=== PATIENT | female | born 1990 | race African-American/Black ===

== ENCOUNTER 2017-08-19 18:56 | Inpatient (IN) | payer MEDICAID ==
--- NOTE | 2017-08-19 19:15 | ER Document Report ---
ED Medical Screen (RME) - General Chief Complaint: Abdominal Pain Stated Complaint: STOMACH PAIN Time Seen by Provider: 08/19/17 18:59 Notes: This 26-year-old female patient comes emergency room complaining of pelvic pain for the last 6 days. Sometimes the pain is in her low back. She reports she is having frequent bowel movements which are soft. She reports she is having intermittent fevers. She did have her tubes tied about 2 months ago in [facility]. I have greeted and performed a rapid initial assessment of this patient. A comprehensive ED assessment and evaluation of the patient, analysis of test results and completion of the medical decision making process will be conducted by additional ED providers. TRAVEL OUTSIDE OF THE [place] IN LAST 30 DAYS: No - Related Data Allergies/Adverse Reactions: No Known Allergies Allergy (Unverified 08/19/17 19:02) Past Medical History Renal/ Medical History: Denies: Hx Peritoneal Dialysis Physical Exam - Vital signs Vitals: Temp Pulse Resp BP Pulse Ox 99.6 F 117 H 20 133/64 H 98 08/19/17 19:02 08/19/17 19:02 08/19/17 19:02 08/19/17 19:02 08/19/17 19:02 Course - Vital Signs Vital signs: Temp Pulse Resp BP Pulse Ox 99.6 F 117 H 20 133/64 H 98 08/19/17 19:02 08/19/17 19:02 08/19/17 19:02 08/19/17 19:02 08/19/17 19:02
[2017-08-19 20:02] LABS: ABSOLUTE LYMPHOCYTES (AUTO) 0.8 10^3/uL (0.5-4.7); ABSOLUTE MONOCYTES (AUTO) 1.6 10^3/uL (0.1-1.4); ABSOLUTE NEUT (AUTO) 12.2 10^3/uL (1.7-8.2); BASOPHILS % (AUTO) 0.3 % (0-2); HEMATOCRIT 33.9 % (36.0-47.0); HEMOGLOBIN 11.6 g/dL (12.0-15.5); HGB HCT DIFFERENCE 0.9; LYMPHOCYTES % (AUTO) 5.7 % (13-45); MEAN CORPUSCULAR HGB CONC 34.3 g/dL (32.0-36.0); MEAN CORPUSCULAR VOLUME 85 fl (80-97); RED BLOOD COUNT 4.01 10^6/uL (3.72-5.28); RED CELL DISTRIBUTION WIDTH 18.7 % (11.5-14.0); WHITE BLOOD COUNT 14.7 10^3/uL (4.0-10.5)
[2017-08-19] MEDS ORDERED: NORMAL SALINE 1000 ML 1,000 ML IV ONE ×2 (20:04→21:59)
[2017-08-19] MEDS ORDERED: ONDANSETRON HCL INJ/PF 4 MG/2 ML SDV IV ONE (20:05)
[2017-08-19] MEDS ORDERED: KETOROLAC TROMETHAMINE INJ/PF 30 MG/1 ML SDV IV ONE (20:05)
--- NOTE | 2017-08-19 20:07 | ER Document Report ---
ED General - General Chief Complaint: Abdominal Pain Stated Complaint: STOMACH PAIN Time Seen by Provider: 08/19/17 18:59 Notes: Patient is a 26-year-old female without past medical history, recent tubal ligation after section 2 months ago, who presents with generalized abdominal pain and bilateral back pain that has been getting progressively worse over the last 6 months. She does describe a constant, generalized, aching pain to the affected areas. Nothing improves or worsens the pain. She notes that she has been nauseated and had no appetite or desire to drink fluids. She has not however had any vomiting. She has had multiple loose bowel movements. She denies a recent history of similar symptoms in the past. She denies any vaginal bleeding or discharge. She has not seen a primary care doctor regarding today's concerns. She states that she has had subjective fevers at home but has not recorded a fever. TRAVEL OUTSIDE OF THE [place] IN LAST 30 DAYS: No - Related Data Allergies/Adverse Reactions: No Known Allergies Allergy (Unverified 08/19/17 19:02) Home Medications: Current Home Medications No Home Medications 08/20/17 [History] Past Medical History - General Information source: Patient - Social History Smoking Status: Current Every Day Smoker Chew tobacco use (# tins/day): No Frequency of alcohol use: None Drug Abuse: None Lives with: Family Family History: Reviewed & Not Pertinent Renal/ Medical History: Denies: Hx Peritoneal Dialysis Past Surgical History: Reports: Hx Section, Hx Tubal Ligation Review of Systems - Review of Systems Notes: Constitutional: Negative for fever. HENT: Negative for sore throat. Eyes: Negative for visual changes. Cardiovascular: Negative for chest pain. Respiratory: Negative for shortness of breath. Gastrointestinal: Positive for abdominal pain and anorexia Genitourinary: Negative for dysuria. Musculoskeletal: Positive for back pain. Skin: Negative for rash. Neurological: Negative for headaches, weakness or numbness. 10 point ROS negative except as marked above and in HPI. Physical Exam - Vital signs Vitals: Temp Pulse Resp BP Pulse Ox 99.6 F 117 H 20 133/64 H 98 08/19/17 19:02 08/19/17 19:02 08/19/17 19:02 08/19/17 19:02 08/19/17 19:02 Interpretation: Tachycardic Notes: PHYSICAL EXAMINATION: GENERAL: Well-appearing, well-nourished and in no acute distress. HEAD: Atraumatic, normocephalic. EYES: Pupils equal round and reactive to light, extraocular movements intact, sclera anicteric, conjunctiva are normal. ENT: nares patent, oropharynx clear without exudates. Dry mucous membranes. NECK: Normal range of motion, supple without lymphadenopathy LUNGS: Breath sounds clear to auscultation bilaterally and equal. No wheezes rales or rhonchi. HEART: Regular tachycardia without murmurs ABDOMEN: Soft, nontender, normoactive bowel sounds. Mild bilateral CVA tenderness. No guarding, no rebound. No masses appreciated. EXTREMITIES: Normal range of motion, no pitting or edema. No cyanosis. NEUROLOGICAL: No focal neurological deficits. Moves all extremities spontaneously and on command. PSYCH: Normal mood, normal affect. SKIN: Warm, Dry, normal turgor, no rashes or lesions noted. Course - Re-evaluation Re-evalutation: 08/19/17 20:05 Patient presents with 6 days of generalized abdominal pain intermittently in her low back. Patient states that she has had 2 months of continuous intermittent pelvic pain since having a tubal ligation and performed but notes that over the past 6 days her abdominal pain has become more generalized with associated back pain. She has had anorexia with nausea but no vomiting. Does report frequent diarrheal bowel movements approximately every 1 hour without any hematochezia or melena. She has had subjective fevers but no recorded fevers. She has been able tolerate oral fluids at home. Abdominal examination is without any focal tenderness rebound or guarding. I have very low clinical suspicion for an acute appendicitis, biliary pathology, acute pancreatitis, bowel obstruction, mesenteric ischemia, tubo-ovarian abscess, based on examination and history. She denies vaginal bleeding or discharge. Differential does include possible acute colitis, pyelonephritis, much less likely intra-abdominal abscess given the remote nature of her surgery. Will proceed with labs, IV fluids, antiemetics, pain control and reassess. 08/19/17 21:59 Laboratories do show acute kidney injury with creatinine 2.74, urinalysis consistent with acute pyelonephritis. Cultures have been sent. IV ceftriaxone and IV fluids have been administered. Given patient's acute kidney failure in the setting of pyelonephritis she will require admission to the hospital. I discussed with the hospitalist Dr. Sheriff was accepted for admission and requested a renal ultrasound. This will be completed. - Vital Signs Vital signs: Temp Pulse Resp BP Pulse Ox 98.9 F 90 17 120/66 100 08/20/17 00:56 08/20/17 00:56 08/20/17 00:56 08/20/17 00:56 08/20/17 00:56 - Laboratory Result Diagrams: 08/19/17 19:43 08/19/17 19:43 Laboratory results interpreted by me: 08/19/17 08/19/17 08/19/17 19:43 19:43 19:43 WBC 14.7 H Hgb 11.6 L Hct 33.9 L RDW 18.7 H Seg Neutrophils % 83.0 H Lymphocytes % 5.7 L Absolute Neutrophils 12.2 H Absolute Monocytes 1.6 H Sodium 136.8 L Potassium 3.1 L Carbon Dioxide 21 L BUN 24 H Creatinine 2.73 H Est GFR ( Amer) 25 L Est GFR (Non-Af Amer) 21 L Glucose 115 H AST 123 H ALT 91 H Urine Protein >=500 H Urine Blood MODERATE H Ur Leukocyte Esterase MODERATE H Urine HCG, Qual POSITIVE H - Diagnostic Test Radiology reviewed: Image reviewed, Reports reviewed Radiology results interpreted by me: 08/20/17 03:13 Chest x-ray: No acute infiltrate or pneumothorax Discharge - Discharge Clinical Impression: Pyelonephritis Sepsis Qualifiers: Sepsis type: sepsis due to unspecified organism Qualified Code(s): A41.9 - Sepsis, unspecified organism Renal failure Qualifiers: Renal failure chronicity: acute Acute renal failure type: unspecified Qualified Code(s): N17.9 - Acute kidney failure, unspecified Condition: Fair Disposition: ADMITTED INPATIENT Admitting Provider: Natalee Sheriff Unit Admitted: Medical Floor
[2017-08-19 20:08] LABS: AMORPHOUS SEDIMENT,URINE TRACE /HPF; APPEARANCE,URINE TURBID; BILIRUBIN,URINE NEGATIVE (NEGATIVE); GLUCOSE, URINE NEGATIVE (NEGATIVE); KETONES,URINE NEGATIVE (NEGATIVE); LEUKOCYTE ESTERASE,URINE MODERATE (NEGATIVE); NITRITE,URINE NEGATIVE (NEGATIVE); PROTEIN,URINE >=500 mg/dL (NEGATIVE); URINE SPECIFIC GRAVITY 1.014; UROBILINOGEN,URINE NEGATIVE mg/dL (<2.0)
[2017-08-19 20:16] LABS: ALANINE AMINOTRANSFERASE 91 U/L (9-52); ALBUMIN 3.5 g/dL (3.5-5.0); ALKALINE PHOSPHATASE 89 U/L (38-126); ANION GAP 16 (5-19); ASPARTATE AMINO TRANSFERASE 123 U/L (14-36); BILIRUBIN,DIRECT 0.3 mg/dL (0.0-0.4); BILIRUBIN,TOTAL 0.5 mg/dL (0.2-1.3); BLOOD UREA NITROGEN 24 mg/dL (7-20); CALCIUM 8.7 mg/dL (8.4-10.2); CARBON DIOXIDE 21 mmol/L (22-30); CHLORIDE 100 mmol/L (98-107); CREATININE RESULT 2.73 mg/dL (0.52-1.25); GLUCOSE 115 mg/dL (75-110); SODIUM 136.8 mmol/L (137-145); TOTAL PROTEIN 6.7 g/dL (6.3-8.2)
[2017-08-19] MEDS ORDERED: CEFTRIAXONE 1 GM/D5W RTU 1 GM/50 ML RTUPB IV ONE (20:30)
[2017-08-19 20:33] LABS: POTASSIUM 3.1 mmol/L (3.6-5.0)
[2017-08-19 20:50] LABS: ADD ON TESTING BLD IN LAB ACKNOWLEDGE
--- NOTE | 2017-08-19 21:03 | RADIOLOGY REPORT (SQ) ---
EXAM DESCRIPTION: CHEST SINGLE VIEW COMPLETED DATE/TIME: 08/19/2017 8:52 pm REASON FOR STUDY: sob COMPARISON: None. EXAM PARAMETERS: NUMBER OF VIEWS: One view. TECHNIQUE: Single frontal radiographic view of the chest acquired. RADIATION DOSE: NA LIMITATIONS: None. FINDINGS: LUNGS AND PLEURA: No opacities, masses or pneumothorax. No pleural effusion. MEDIASTINUM AND HILAR STRUCTURES: No masses. Contour normal. HEART AND VASCULAR STRUCTURES: Heart normal in size. Normal vasculature. BONES: No acute findings. HARDWARE: None in the chest. OTHER: No other significant finding. IMPRESSION: NO ACUTE RADIOGRAPHIC FINDING IN THE CHEST. TECHNICAL DOCUMENTATION: JOB ID: [id number]
[2017-08-19 21:33] LABS: CHLAM PCR NOT DETECTED (NOT DETECT)
[2017-08-19] MEDS ORDERED: PROMETHAZINE HCL 25 MG SUPP.RECT PR PRN (23:01)
[2017-08-19] MEDS ORDERED: POTASSIUM CHLORIDE 10 MEQ TABLET.SA PO ONE (23:05)
[2017-08-19] MEDS ORDERED: NORMAL SALINE 1000 ML 2,000 ML IV ONE (23:13)
--- NOTE | 2017-08-19 23:15 | PDOC H&P ---
History of Present Illness Admission Date/PCP: 08/19/17 22:06 History of Present Illness: NYA CERRATO is a 26 year old female with no PMH who presents to [facility] with abdominal pain and diarrhea. Patient reports she developed sudden onset of watery diarrhea about 5 days ago. Patient reports she has been having more than 20 stools/day. Patient reports no associated hematochezia or melena and diarrhea is not bloody. Patient denies any raw or undercooked meat, raw or undercooked shellfish, sick contacts, or travel outside the country. She reports no recent antibiotic usage, the patient did have a approximately 2 months ago. Patient denies any urinary frequency, urgency, or dysuria. Patient reports in fact very recently she has been urinating very little. Patient reports a subjective fever and chills but did not take her temperature. She is referred to the hospitalist service for sepsis with acute renal failure secondary to urinary tract infection. Past Medical History Medical History: None Past Surgical History Past Surgical History: Reports: Section, Tubal Ligation Social History Smoking Status: Current Every Day Smoker Frequency of Alcohol Use: None Hx Recreational Drug Use: No Hx Prescription Drug Abuse: No - Advance Directive Resuscitation Status: Full Code Surrogate healthcare decision maker:: Gee Dutta, grandmother Family History Family History: DM, Other - Asthma Parental Family History Reviewed: Yes Children Family History Reviewed: Yes Sibling(s) Family History Reviewed.: Yes Medication/Allergy Allergies/Adverse Reactions: No Known Allergies Allergy (Unverified 08/19/17 19:02) Review of Systems Constitutional: PRESENT: anorexia, chills, fatigue, fever(s), weakness. ABSENT : headache(s), weight gain, weight loss Eyes: ABSENT: visual disturbances Ears: ABSENT: hearing changes Cardiovascular: ABSENT: chest pain, dyspnea on exertion, edema, orthropnea, palpitations Respiratory: ABSENT: cough, hemoptysis Gastrointestinal: PRESENT: abdominal pain, diarrhea, nausea. ABSENT: constipation, heartburn, hematemesis, hematochezia, melena, vomiting Genitourinary: ABSENT: dysuria, hematuria Musculoskeletal: ABSENT: joint swelling Integumentary: ABSENT: rash, wounds Neurological: ABSENT: abnormal gait, abnormal speech, confusion, dizziness, focal weakness, syncope Psychiatric: ABSENT: anxiety, depression, homidical ideation, suicidal ideation Endocrine: ABSENT: cold intolerance, heat intolerance, polydipsia, polyuria Hematologic/Lymphatic: ABSENT: easy bleeding, easy bruising Physical Exam Vital Signs: Temp Pulse Resp BP Pulse Ox 99.6 F 117 H 20 133/64 H 98 08/19/17 19:02 08/19/17 19:02 08/19/17 19:02 08/19/17 19:02 08/19/17 19:02 General appearance: PRESENT: no acute distress, well-developed, well-nourished Head exam: PRESENT: atraumatic, normocephalic Eye exam: PRESENT: conjunctiva pink, EOMI, PERRLA. ABSENT: scleral icterus Ear exam: PRESENT: normal external ear exam Mouth exam: PRESENT: dry mucosa, tongue midline Neck exam: ABSENT: carotid bruit, JVD, lymphadenopathy, thyromegaly Respiratory exam: PRESENT: clear to auscultation kings. ABSENT: rales, rhonchi, wheezes Cardiovascular exam: PRESENT: RRR. ABSENT: diastolic murmur, rubs, systolic murmur Pulses: PRESENT: normal dorsalis pedis pul Vascular exam: PRESENT: normal capillary refill GI/Abdominal exam: PRESENT: normal bowel sounds, soft. ABSENT: distended, guarding, mass, organolmegaly, rebound, tenderness Rectal exam: PRESENT: deferred Extremities exam: PRESENT: full ROM. ABSENT: calf tenderness, clubbing, pedal edema Neurological exam: PRESENT: alert, awake, oriented to person, oriented to place , oriented to time, oriented to situation, CN II-XII grossly intact. ABSENT: motor sensory deficit Psychiatric exam: PRESENT: appropriate affect, normal mood. ABSENT: homicidal ideation, suicidal ideation Skin exam: PRESENT: dry, intact, warm. ABSENT: cyanosis, rash Results Laboratory Results: 08/19/17 08/19/17 08/19/17 19:43 19:43 19:43 WBC 14.7 H Hgb 11.6 L Hct 33.9 L Plt Count 208 Sodium 136.8 L Potassium 3.1 L Chloride 100 Carbon Dioxide 21 L Anion Gap 16 BUN 24 H Creatinine 2.73 H Glucose 115 H Calcium 8.7 Total Bilirubin 0.5 Direct Bilirubin 0.3 AST 123 H ALT 91 H Alkaline Phosphatase 89 Total Protein 6.7 Albumin 3.5 Beta HCG, Quant Total Beta HCG Ur Specific [place] Urine Blood Ur Leukocyte Esterase Urine Bacteria (Auto) Urine HCG, Qual Chlamydia DNA (PCR) NOT DETECTED N.gonorrhoeae DNA (PCR) NOT DETECTED 08/19/17 08/19/17 19:43 19:43 WBC Hgb Hct Plt Count Sodium Potassium Chloride Carbon Dioxide Anion Gap BUN Creatinine Glucose Calcium Total Bilirubin Direct Bilirubin AST ALT Alkaline Phosphatase Total Protein Albumin Beta HCG, Quant < 2.39 Total Beta HCG NEGATIVE Ur Specific [place] 1.014 Urine Blood MODERATE H Ur Leukocyte Esterase MODERATE H Urine Bacteria (Auto) 3+ Urine HCG, Qual POSITIVE H Chlamydia DNA (PCR) N.gonorrhoeae DNA (PCR) Impressions: Chest X-Ray 08/19/17 20:05 IMPRESSION: NO ACUTE RADIOGRAPHIC FINDING IN THE CHEST. Assessment & Plan - Diagnosis (1) Sepsis Qualifiers: Sepsis type: sepsis due to unspecified organism Qualified Code(s): A41.9 - Sepsis, unspecified organism Is this a current diagnosis for this admission?: Yes Plan: Patient needs technical sepsis criteria. Selected Entries 08/19/17 19:02 Pulse Rate 117 H 08/19/17 08/19/17 19:43 19:43 WBC 14.7 H BUN 24 H Creatinine 2.73 H We will bolus patient and initiate antibiotics and obtain cultures. Maintain map greater than 65 (2) Renal failure Qualifiers: Renal failure chronicity: acute Acute renal failure type: unspecified Qualified Code(s): N17.9 - Acute kidney failure, unspecified Is this a current diagnosis for this admission?: Yes Plan: Likely secondary to dehydration. Will obtain a renal ultrasound to rule out hydronephrosis. And follow creatinine. (3) UTI (urinary tract infection) Qualifiers: Urinary tract infection type: acute cystitis Hematuria presence: without hematuria Qualified Code(s): N30.00 - Acute cystitis without hematuria Is this a current diagnosis for this admission?: Yes Plan: Place patient on Rocephin. Pending culture. (4) Diarrhea Qualifiers: Diarrhea type: presumed infectious Qualified Code(s): A09 - Infectious gastroenteritis and colitis, unspecified Is this a current diagnosis for this admission?: Yes Plan: Patient's diarrhea is presumed infectious. She had associated fever and significant volume. We will check a stool culture, C. difficile, fecal leukocytes, and occult blood. Place patient on Flagyl pending results of these. (5) Hypokalemia Is this a current diagnosis for this admission?: Yes Plan: Replete and recheck. Check magnesium (6) Hyponatremia Is this a current diagnosis for this admission?: Yes Plan: Secondary to intravascular volume depletion will replete and recheck (7) Obesity (BMI 30.0-34.9) Is this a current diagnosis for this admission?: Yes - Time Time Spent: 30 to 50 Minutes Medications reviewed and adjusted accordingly: Yes Anticipated discharge: Home Within: Other - Upon improvement of symptomatology and creatinine as well as identification of organism - Inpatient Certification Based on my medical assessment, after consideration of the patient's comorbidities, presenting symptoms, or acuity I expect that the services needed warrant INPATIENT care.: Yes I certify that my determination is in accordance with my understanding of Medicare's requirements for reasonable and necessary INPATIENT services [42 CFR 412.3e].: Yes Medical Necessity: Need For IV Fluids, Need for IV Antibiotics Post Hospital Care: D/C Bail Bonding Agent Documentation
[2017-08-20] MEDS: METRONIDAZOLE 500 MG/NS RTU 100 ML IV SCH ×3 (00:22→11:27)
--- NOTE | 2017-08-20 00:26 | RADIOLOGY REPORT (SQ) ---
EXAM DESCRIPTION: U/S RETROPERITON (RENAL/AORTA) COMPLETED DATE/TIME: 08/20/2017 12:05 am REASON FOR STUDY: eval obstruction, renal failure COMPARISON: None. TECHNIQUE: Grayscale images acquired of the kidneys and bladder and recorded on PACS. Additional charlie ected color Doppler images recorded. LIMITATIONS: None. FINDINGS: RIGHT KIDNEY: Measures 13.7 x 5.6 x 7.3 cm. Normal echogenicity. No hydronephrosis. No maureen cifications. LEFT KIDNEY: Measures 13.1 x 6.0 x 6.4 cm. Normal echogenicity. No hydronephrosis. No calcifications . BLADDER: Not visualized. IMPRESSION: No hydronephrosis. TECHNICAL DOCUMENTATION: JOB ID: [id number] [employer]- All Rights Reserved
[2017-08-20] MEDS: ACETAMINOPHEN 325 MG TABLET PO PRN ×3 (04:51→20:42)
[2017-08-20] MEDS: ONDANSETRON HCL INJ/PF 4 MG/2 ML SDV IV PRN (04:52)
[2017-08-20] MEDS: HEPARIN SOD (PORCINE) 5,000 UNIT/ML 1 ML SYRINGE SUBCUT SCH ×3 (06:00→21:49)
[2017-08-20 06:41] LABS: ANION GAP 14 (5-19); BLOOD UREA NITROGEN 28 mg/dL (7-20); CALCIUM 7.9 mg/dL (8.4-10.2); CARBON DIOXIDE 18 mmol/L (22-30); CHLORIDE 107 mmol/L (98-107); CREATININE RESULT 3.04 mg/dL (0.52-1.25); GLUCOSE 101 mg/dL (75-110); MAGNESIUM 1.6 mg/dL (1.6-2.3); POTASSIUM 3.5 mmol/L (3.6-5.0); SODIUM 138.9 mmol/L (137-145)
[2017-08-20 09:14] LABS: ABSOLUTE BASOPHILS # (AUTO) 0.1 10^3/uL (0.0-0.2); ABSOLUTE LYMPHOCYTES (AUTO) 0.8 10^3/uL (0.5-4.7); ABSOLUTE MONOCYTES (AUTO) 1.2 10^3/uL (0.1-1.4); ABSOLUTE NEUT (AUTO) 10.2 10^3/uL (1.7-8.2); BASOPHILS % (AUTO) 0.4 % (0-2); EOSINOPHILS % (AUTO) 0.2 % (0-6); HEMATOCRIT 29.1 % (36.0-47.0); HEMOGLOBIN 9.6 g/dL (12.0-15.5); HGB HCT DIFFERENCE -0.3; LYMPHOCYTES % (AUTO) 6.9 % (13-45); MEAN CORPUSCULAR HEMOGLOBIN 28.5 pg (27.0-33.4); MEAN CORPUSCULAR VOLUME 87 fl (80-97); MONOCYTES % (AUTO) 9.4 % (3-13); RED BLOOD COUNT 3.37 10^6/uL (3.72-5.28); RED CELL DISTRIBUTION WIDTH 18.2 % (11.5-14.0); SEGMENTED NEUTROPHILS % (AUTO) 83.1 % (42-78); WHITE BLOOD COUNT 12.3 10^3/uL (4.0-10.5)
[2017-08-20] MEDS ORDERED: CEFTRIAXONE 1 GM/D5W RTU 1 GM/50 ML RTUPB IV SCH (10:00)
[2017-08-20] MEDS: NORMAL SALINE 1000 ML 1,000 ML IV PRN (13:41)
--- NOTE | 2017-08-20 14:53 | PDOC PROGRESS REPORT ---
Subjective Progress Note for:: 08/20/17 Subjective:: Patient still having diarrhea but less. No dysuria urgency or frequency. No melena hematochezia hematemesis. No hematuria. Abdominal pain is better. No chills fever nor shortness of breath. Physical Exam Vital Signs: Temp Pulse Resp BP Pulse Ox 98.3 F 85 16 108/55 L 99 08/20/17 12:10 08/20/17 12:10 08/20/17 12:10 08/20/17 12:10 08/20/17 12:10 Intake & Output 08/19/17 08/20/17 08/21/17 06:59 06:59 06:59 Intake Total 600 Balance 600 Weight 96.1 kg General appearance: PRESENT: no acute distress, morbidly obese Head exam: PRESENT: normocephalic Eye exam: PRESENT: EOMI Mouth exam: PRESENT: moist, neck supple Neck exam: ABSENT: JVD Respiratory exam: PRESENT: clear to auscultation kings. ABSENT: rhonchi, wheezes Cardiovascular exam: PRESENT: RRR. ABSENT: gallop GI/Abdominal exam: PRESENT: hyperactive bowel sounds, soft. ABSENT: distended - Obese, tenderness Extremities exam: ABSENT: pedal edema Neurological exam: PRESENT: alert, awake, oriented to situation Skin exam: PRESENT: dry, warm. ABSENT: cyanosis Results Laboratory Results: 08/20/17 08:12 08/20/17 05:31 08/19/17 08/19/17 08/20/17 23:05 23:05 05:31 WBC Cancelled RBC Cancelled Hgb Cancelled Hct Cancelled MCV Cancelled MCH Cancelled MCHC Cancelled RDW Cancelled Plt Count Cancelled Seg Neutrophils % Cancelled Lymphocytes % Cancelled Monocytes % Cancelled Eosinophils % Cancelled Basophils % Cancelled Absolute Neutrophils Cancelled Absolute Lymphocytes Cancelled Absolute Monocytes Cancelled Absolute Eosinophils Cancelled Absolute Basophils Cancelled Sodium Potassium Chloride Carbon Dioxide Anion Gap BUN Creatinine Est GFR ( Amer) Est GFR (Non-Af Amer) Glucose Calcium Magnesium Stool Occult Blood NEGATIVE Stool for White Cells NO WBCs SEEN 08/20/17 08/20/17 05:31 08:12 WBC 12.3 H RBC 3.37 L Hgb 9.6 L Hct 29.1 L MCV 87 MCH 28.5 MCHC 33.0 RDW 18.2 H Plt Count 169 Seg Neutrophils % 83.1 H Lymphocytes % 6.9 L Monocytes % 9.4 Eosinophils % 0.2 Basophils % 0.4 Absolute Neutrophils 10.2 H Absolute Lymphocytes 0.8 Absolute Monocytes 1.2 Absolute Eosinophils 0.0 Absolute Basophils 0.1 Sodium 138.9 Potassium 3.5 L Chloride 107 Carbon Dioxide 18 L Anion Gap 14 BUN 28 H Creatinine 3.04 H Est GFR ( Amer) 22 L Est GFR (Non-Af Amer) 18 L Glucose 101 Calcium 7.9 L Magnesium 1.6 Stool Occult Blood Stool for White Cells Impressions: Chest X-Ray 08/19/17 20:05 IMPRESSION: NO ACUTE RADIOGRAPHIC FINDING IN THE CHEST. Renal Ultrasound 08/19/17 21:58 IMPRESSION: No hydronephrosis. Assessment & Plan - Diagnosis (1) Sepsis Qualifiers: Sepsis type: sepsis due to unspecified organism Qualified Code(s): A41.9 - Sepsis, unspecified organism Is this a current diagnosis for this admission?: Yes (2) UTI (urinary tract infection) Qualifiers: Urinary tract infection type: acute cystitis Hematuria presence: without hematuria Qualified Code(s): N30.00 - Acute cystitis without hematuria Is this a current diagnosis for this admission?: Yes (3) Renal failure Qualifiers: Renal failure chronicity: acute Acute renal failure type: unspecified Qualified Code(s): N17.9 - Acute kidney failure, unspecified Is this a current diagnosis for this admission?: Yes (4) Diarrhea Qualifiers: Diarrhea type: presumed infectious Qualified Code(s): A09 - Infectious gastroenteritis and colitis, unspecified Is this a current diagnosis for this admission?: Yes (5) Obesity (BMI 30.0-34.9) Is this a current diagnosis for this admission?: Yes - Time Time Spent with patient: 25-34 minutes - Plan Summary Plan Summary: We will change antibiotic to Primaxin pending identity of the gram-negative organisms. De-escalate once culture and sensitivity available. Repeat blood cultures in the morning. In the meantime replace electrolytes and monitor. Continue supportive care.
[2017-08-20] MEDS ORDERED: IMIPENEM/CILASTATIN SODIUM INJ 500 MG VIAL IV SCH (15:00)
[2017-08-20] MEDS ORDERED: POTASSIUM CHLORIDE 10 MEQ TABLET.SA PO ONE (16:00)
[2017-08-20] MEDS: IMIPENEM/CILASTATIN SODIUM 500 MG in NORMAL SALINE 100 ML IV SCH (17:07)
[2017-08-20] MEDS ORDERED: NORMAL SALINE 1000 ML 2,000 ML IV ONE (21:30)
[2017-08-20] MEDS ORDERED: KETOROLAC TROMETHAMINE INJ/PF 30 MG/1 ML SDV ONE (21:32)
[2017-08-20] MEDS ORDERED: KETOROLAC TROMETHAMINE INJ/PF 30 MG/1 ML SDV IV ONE (22:00)
[2017-08-21] MEDS: IMIPENEM/CILASTATIN SODIUM 500 MG in NORMAL SALINE 100 ML IV SCH ×5 (00:26→23:48)
[2017-08-21] MEDS ORDERED: KETOROLAC TROMETHAMINE INJ/PF 30 MG/1 ML SDV IV PRN (04:02)
[2017-08-21] MEDS: HEPARIN SOD (PORCINE) 5,000 UNIT/ML 1 ML SYRINGE SUBCUT SCH ×3 (05:26→21:50)
[2017-08-21 06:49] LABS: ANION GAP 10 (5-19); BLOOD UREA NITROGEN 24 mg/dL (7-20); CALCIUM 7.6 mg/dL (8.4-10.2); CARBON DIOXIDE 18 mmol/L (22-30); CHLORIDE 114 mmol/L (98-107); CREATININE RESULT 2.62 mg/dL (0.52-1.25); GLUCOSE 93 mg/dL (75-110); POTASSIUM 4.2 mmol/L (3.6-5.0); SODIUM 142.2 mmol/L (137-145)
[2017-08-21] MEDS: ONDANSETRON HCL INJ/PF 4 MG/2 ML SDV IV PRN ×2 (07:39→18:13)
[2017-08-21] MEDS: NORMAL SALINE 1000 ML 1,000 ML IV PRN (10:59)
--- NOTE | 2017-08-21 14:13 | PDOC PROGRESS REPORT ---
Subjective Progress Note for:: 08/21/17 Subjective:: Complains of acid reflux. Physical Exam Vital Signs: Temp Pulse Resp BP Pulse Ox 98.9 F 85 18 138/85 H 96 08/21/17 11:28 08/21/17 11:28 08/21/17 11:28 08/21/17 11:28 08/21/17 11:28 Intake & Output 08/20/17 08/21/17 08/22/17 06:59 06:59 06:59 Intake Total 3120 750 Balance 3120 750 Weight 96.1 kg 96.1 kg General appearance: PRESENT: no acute distress Eye exam: PRESENT: conjunctiva pink. ABSENT: scleral icterus Mouth exam: PRESENT: moist, tongue midline Neck exam: ABSENT: JVD Respiratory exam: PRESENT: clear to auscultation kings. ABSENT: rales, rhonchi, wheezes Cardiovascular exam: PRESENT: RRR. ABSENT: diastolic murmur, rubs, systolic murmur GI/Abdominal exam: PRESENT: normal bowel sounds, soft. ABSENT: distended, guarding, mass, organolmegaly, rebound, tenderness Extremities exam: ABSENT: calf tenderness, clubbing, pedal edema Neurological exam: PRESENT: alert, awake, oriented to person, oriented to place , oriented to time, oriented to situation, CN II-XII grossly intact. ABSENT: motor sensory deficit Psychiatric exam: PRESENT: appropriate affect Skin exam: PRESENT: dry, intact, warm. ABSENT: cyanosis, rash Results Laboratory Results: 08/20/17 08:12 08/21/17 05:21 08/21/17 05:21 Sodium 142.2 Potassium 4.2 Chloride 114 H Carbon Dioxide 18 L Anion Gap 10 BUN 24 H Creatinine 2.62 H Est GFR ( Amer) 26 L Est GFR (Non-Af Amer) 22 L Glucose 93 Calcium 7.6 L 08/19/17 23:05 Stool - Stool - Final Impressions: Chest X-Ray 08/19/17 20:05 IMPRESSION: NO ACUTE RADIOGRAPHIC FINDING IN THE CHEST. Renal Ultrasound 08/19/17 21:58 IMPRESSION: No hydronephrosis. Assessment & Plan - Diagnosis (1) Sepsis Qualifiers: Sepsis type: sepsis due to unspecified organism Qualified Code(s): A41.9 - Sepsis, unspecified organism Is this a current diagnosis for this admission?: Yes Plan: Patient has sepsis from urinary tract infection. She has blood culture that is growing gram-negative rods. We will continue with the Primaxin until the ID is known. (2) UTI (urinary tract infection) Qualifiers: Urinary tract infection type: acute cystitis Hematuria presence: without hematuria Qualified Code(s): N30.00 - Acute cystitis without hematuria Is this a current diagnosis for this admission?: Yes Plan: Continue with Primaxin. (3) Hypokalemia Is this a current diagnosis for this admission?: Yes Plan: Resolved. (4) Diarrhea Qualifiers: Diarrhea type: presumed infectious Qualified Code(s): A09 - Infectious gastroenteritis and colitis, unspecified Is this a current diagnosis for this admission?: Yes Plan: Improving. (5) Obesity (BMI 30.0-34.9) Is this a current diagnosis for this admission?: Yes (6) Renal failure Qualifiers: Renal failure chronicity: acute Acute renal failure type: unspecified Qualified Code(s): N17.9 - Acute kidney failure, unspecified Is this a current diagnosis for this admission?: Yes Plan: Patient is to continue with IV fluids. - Time Time Spent with patient: 25-34 minutes - Inpatient Certification Medical Necessity: Need For IV Fluids, Need for IV Antibiotics
[2017-08-21] MEDS ORDERED: PANTOPRAZOLE SODIUM 40 MG VIAL IV ONE (14:30)
[2017-08-21] MEDS: ACETAMINOPHEN 325 MG TABLET PO PRN (17:35)
[2017-08-22] MEDS: ACETAMINOPHEN 325 MG TABLET PO PRN ×2 (01:38→22:44)
[2017-08-22] MEDS: HEPARIN SOD (PORCINE) 5,000 UNIT/ML 1 ML SYRINGE SUBCUT SCH ×3 (06:01→21:43)
[2017-08-22] MEDS: IMIPENEM/CILASTATIN SODIUM 500 MG in NORMAL SALINE 100 ML IV SCH ×2 (06:01→12:32)
[2017-08-22 06:48] LABS: ABSOLUTE BASOPHILS # (AUTO) 0.1 10^3/uL (0.0-0.2); ABSOLUTE EOSINOPHILS # (AUTO) 0.1 10^3/uL (0.0-0.6); ABSOLUTE LYMPHOCYTES (AUTO) 1.4 10^3/uL (0.5-4.7); ABSOLUTE MONOCYTES (AUTO) 1.5 10^3/uL (0.1-1.4); ABSOLUTE NEUT (AUTO) 7.7 10^3/uL (1.7-8.2); BASOPHILS % (AUTO) 0.8 % (0-2); EOSINOPHILS % (AUTO) 1.2 % (0-6); HEMATOCRIT 26.9 % (36.0-47.0); HEMOGLOBIN 9.2 g/dL (12.0-15.5); HGB HCT DIFFERENCE 0.7; LYMPHOCYTES % (AUTO) 12.7 % (13-45); MEAN CORPUSCULAR HEMOGLOBIN 29.1 pg (27.0-33.4); MEAN CORPUSCULAR HGB CONC 34.2 g/dL (32.0-36.0); MEAN CORPUSCULAR VOLUME 85 fl (80-97); MONOCYTES % (AUTO) 14.2 % (3-13); RED BLOOD COUNT 3.16 10^6/uL (3.72-5.28); SEGMENTED NEUTROPHILS % (AUTO) 71.1 % (42-78); WHITE BLOOD COUNT 10.9 10^3/uL (4.0-10.5)
[2017-08-22 07:17] LABS: ANION GAP 13 (5-19); BLOOD UREA NITROGEN 16 mg/dL (7-20); CARBON DIOXIDE 18 mmol/L (22-30); CHLORIDE 114 mmol/L (98-107); CREATININE RESULT 2.28 mg/dL (0.52-1.25); GLUCOSE 86 mg/dL (75-110); POTASSIUM 3.6 mmol/L (3.6-5.0); SODIUM 144.9 mmol/L (137-145)
[2017-08-22] MEDS ORDERED: PANTOPRAZOLE SODIUM 40 MG VIAL IV SCH (10:00)
[2017-08-22] MEDS: NORMAL SALINE 1000 ML 1,000 ML IV PRN ×2 (10:29→22:37)
--- NOTE | 2017-08-22 14:03 | PDOC PROGRESS REPORT ---
Subjective Progress Note for:: 08/22/17 Subjective:: Denies any complaints. Physical Exam Vital Signs: Temp Pulse Resp BP Pulse Ox 98.0 F 81 16 135/94 H 99 08/22/17 07:42 08/22/17 07:42 08/22/17 07:42 08/22/17 07:42 08/22/17 07:42 Intake & Output 08/21/17 08/22/17 08/23/17 06:59 06:59 06:59 Intake Total 3120 3940 Output Total 500 Balance 3120 3440 Weight 96.1 kg 96.1 kg General appearance: PRESENT: no acute distress Eye exam: PRESENT: conjunctiva pink. ABSENT: scleral icterus Mouth exam: PRESENT: moist, tongue midline Neck exam: ABSENT: JVD Respiratory exam: PRESENT: clear to auscultation kings. ABSENT: rales, rhonchi, wheezes Cardiovascular exam: PRESENT: RRR. ABSENT: diastolic murmur, rubs, systolic murmur GI/Abdominal exam: PRESENT: normal bowel sounds, soft. ABSENT: distended, guarding, mass, organolmegaly, rebound, tenderness Extremities exam: ABSENT: calf tenderness, clubbing, pedal edema Neurological exam: PRESENT: alert, awake, oriented to person, oriented to place , oriented to time, oriented to situation, CN II-XII grossly intact. ABSENT: motor sensory deficit Psychiatric exam: PRESENT: appropriate affect Skin exam: PRESENT: dry, intact, warm. ABSENT: cyanosis, rash Results Laboratory Results: 08/22/17 05:58 08/22/17 05:58 08/22/17 08/22/17 05:58 05:58 WBC 10.9 H RBC 3.16 L Hgb 9.2 L Hct 26.9 L MCV 85 MCH 29.1 MCHC 34.2 RDW 19.0 H Plt Count 245 Seg Neutrophils % 71.1 Lymphocytes % 12.7 L Monocytes % 14.2 H Eosinophils % 1.2 Basophils % 0.8 Absolute Neutrophils 7.7 Absolute Lymphocytes 1.4 Absolute Monocytes 1.5 H Absolute Eosinophils 0.1 Absolute Basophils 0.1 Sodium 144.9 Potassium 3.6 Chloride 114 H Carbon Dioxide 18 L Anion Gap 13 BUN 16 Creatinine 2.28 H Est GFR ( Amer) 31 L Est GFR (Non-Af Amer) 26 L Glucose 86 Calcium 8.0 L 08/19/17 23:05 Stool - Stool - Final Impressions: Chest X-Ray 08/19/17 20:05 IMPRESSION: NO ACUTE RADIOGRAPHIC FINDING IN THE CHEST. Renal Ultrasound 08/19/17 21:58 IMPRESSION: No hydronephrosis. Assessment & Plan - Diagnosis (1) Sepsis Qualifiers: Sepsis type: sepsis due to unspecified organism Qualified Code(s): A41.9 - Sepsis, unspecified organism Is this a current diagnosis for this admission?: Yes Plan: Patient has sepsis from urinary tract infection. She is growing E. coli from both urine and blood cultures. Will DC the imipenem and change to Rocephin. (2) UTI (urinary tract infection) Qualifiers: Urinary tract infection type: acute cystitis Hematuria presence: without hematuria Qualified Code(s): N30.00 - Acute cystitis without hematuria Is this a current diagnosis for this admission?: Yes Plan: Secondary to E. coli. Will DC the Primaxin and change to Rocephin. (3) Hypokalemia Is this a current diagnosis for this admission?: Yes Plan: Resolved. (4) Diarrhea Qualifiers: Diarrhea type: presumed infectious Qualified Code(s): A09 - Infectious gastroenteritis and colitis, unspecified Is this a current diagnosis for this admission?: Yes Plan: Improving. (5) Obesity (BMI 30.0-34.9) Is this a current diagnosis for this admission?: Yes (6) Renal failure Qualifiers: Renal failure chronicity: acute Acute renal failure type: unspecified Qualified Code(s): N17.9 - Acute kidney failure, unspecified Is this a current diagnosis for this admission?: Yes Plan: Patient is to continue with IV fluids. - Time Time Spent with patient: 25-34 minutes - Inpatient Certification Medical Necessity: Need for IV Antibiotics
[2017-08-22] MEDS ORDERED: CEFTRIAXONE 1 GM/D5W RTU 1 GM/50 ML RTUPB IV SCH (16:00)
[2017-08-23 00:05] VITALS: BP 136/93
[2017-08-23] MEDS: ACETAMINOPHEN 325 MG TABLET PO PRN ×2 (04:18→08:16)
[2017-08-23 05:58] LABS: ABSOLUTE BASOPHILS # (AUTO) 0.1 10^3/uL (0.0-0.2); ABSOLUTE EOSINOPHILS # (AUTO) 0.3 10^3/uL (0.0-0.6); ABSOLUTE LYMPHOCYTES (AUTO) 1.7 10^3/uL (0.5-4.7); ABSOLUTE MONOCYTES (AUTO) 1.4 10^3/uL (0.1-1.4); ABSOLUTE NEUT (AUTO) 5.5 10^3/uL (1.7-8.2); BASOPHILS % (AUTO) 1.2 % (0-2); HEMATOCRIT 25.3 % (36.0-47.0); HEMOGLOBIN 8.6 g/dL (12.0-15.5); HGB HCT DIFFERENCE 0.5; LYMPHOCYTES % (AUTO) 19.3 % (13-45); MEAN CORPUSCULAR HEMOGLOBIN 28.6 pg (27.0-33.4); MEAN CORPUSCULAR HGB CONC 33.9 g/dL (32.0-36.0); MEAN CORPUSCULAR VOLUME 85 fl (80-97); MONOCYTES % (AUTO) 15.4 % (3-13); RED BLOOD COUNT 2.99 10^6/uL (3.72-5.28); RED CELL DISTRIBUTION WIDTH 19.1 % (11.5-14.0); SEGMENTED NEUTROPHILS % (AUTO) 61.1 % (42-78)
[2017-08-23 06:19] LABS: ANION GAP 11 (5-19); BLOOD UREA NITROGEN 12 mg/dL (7-20); CALCIUM 8.3 mg/dL (8.4-10.2); CARBON DIOXIDE 21 mmol/L (22-30); CHLORIDE 115 mmol/L (98-107); CREATININE RESULT 1.62 mg/dL (0.52-1.25); GLUCOSE 103 mg/dL (75-110); POTASSIUM 4.1 mmol/L (3.6-5.0); SODIUM 146.9 mmol/L (137-145)
[2017-08-23] MEDS: HEPARIN SOD (PORCINE) 5,000 UNIT/ML 1 ML SYRINGE SUBCUT SCH (06:28)
--- NOTE | 2017-08-23 17:10 | PDOC DISCHARGE SUMMARY ---
General - Admit/Disc Date/PCP Admission Date/Primary Care Provider: 08/19/17 23:01 Discharge Date: 08/23/17 - Discharge Diagnosis (1) Sepsis Is this a current diagnosis for this admission?: Yes Summary: Secondary to E. coli urinary tract infection (2) UTI (urinary tract infection) Is this a current diagnosis for this admission?: Yes Summary: Secondary to E. coli. (3) Hypokalemia Is this a current diagnosis for this admission?: Yes (4) Diarrhea Is this a current diagnosis for this admission?: Yes (5) Obesity (BMI 30.0-34.9) Is this a current diagnosis for this admission?: Yes (6) Renal failure Is this a current diagnosis for this admission?: Yes Summary: Creatinine has improved from 3 down to 1.6 on the day of discharge. [place] to be secondary to the acute illness and dehydration. - Additional Information Resuscitation Status: Full Code Discharge Diet: Cardiac Discharge Activity: Activity As Tolerated Home Medications: Cefuroxime Axetil [Ceftin 500 mg Tablet] 1 tab PO BID #20 tablet 08/23/17 History of Present Illness History of Present Illness: NYA CERRATO is a 26 year old female who presented to our hospital with abdominal pain and diarrhea. The patient had approximately 5 days of watery diarrhea prior to presentation. The patient also did have complaints of decreased urinary output along with some fevers and chills. Patient was found to have sepsis secondary to a urinary tract infection with acute renal failure. Hospital Course Hospital Course: 26-year-old female who presented with sepsis secondary to urinary tract infection. The patient also was noted to have acute renal failure. Patient was treated with IV antibiotics and eventually grew out E. coli that was pansensitive. She was changed from IV antibiotics to p.o. Ceftin and will have a complete a total of 14 days of antibiotics at home. The patient because of her acute renal failure was given IV fluids with improvement in her creatinine from 3 down to 1.6 on the day of discharge. She was eating and drinking well and urinating without difficulty. The patient had a renal ultrasound and evaluation of her acute renal failure and there was no evidence for hydronephrosis. The patient will follow up with her primary care doctor for a repeat chemistry panel to make certain that her creatinine has indeed returned to normal. Given that it was trending down fairly well I thought it was safe to discharge her before it returned completely to normal given that she was young and eating and drinking well. Physical Exam Vital Signs: Temp Pulse Resp BP Pulse Ox 97.9 F 88 20 136/93 H 98 08/23/17 09:11 08/23/17 09:11 08/23/17 09:11 08/23/17 09:11 08/23/17 09:11 Intake & Output 08/22/17 08/23/17 08/24/17 06:59 06:59 06:59 Intake Total 3940 3788 Output Total 500 500 Balance 3440 3288 Weight 96.1 kg 96.1 kg General appearance: PRESENT: no acute distress Eye exam: PRESENT: conjunctiva pink. ABSENT: scleral icterus Mouth exam: PRESENT: moist, tongue midline Neck exam: ABSENT: JVD Respiratory exam: PRESENT: clear to auscultation kings. ABSENT: rales, rhonchi, wheezes Cardiovascular exam: PRESENT: RRR. ABSENT: diastolic murmur, rubs, systolic murmur GI/Abdominal exam: PRESENT: normal bowel sounds, soft. ABSENT: distended, guarding, mass, organolmegaly, rebound, tenderness Extremities exam: ABSENT: calf tenderness, clubbing, pedal edema Neurological exam: PRESENT: alert, awake, oriented to person, oriented to place , oriented to time, oriented to situation, CN II-XII grossly intact. ABSENT: motor sensory deficit Psychiatric exam: PRESENT: appropriate affect Skin exam: PRESENT: dry, intact, warm. ABSENT: cyanosis, rash Results Laboratory Results: 08/23/17 05:25 08/23/17 05:25 08/23/17 08/23/17 05:25 05:25 WBC 9.0 RBC 2.99 L Hgb 8.6 L Hct 25.3 L MCV 85 MCH 28.6 MCHC 33.9 RDW 19.1 H Plt Count 266 Seg Neutrophils % 61.1 Lymphocytes % 19.3 Monocytes % 15.4 H Eosinophils % 3.0 Basophils % 1.2 Absolute Neutrophils 5.5 Absolute Lymphocytes 1.7 Absolute Monocytes 1.4 Absolute Eosinophils 0.3 Absolute Basophils 0.1 Sodium 146.9 H Potassium 4.1 Chloride 115 H Carbon Dioxide 21 L Anion Gap 11 BUN 12 Creatinine 1.62 H Est GFR ( Amer) 46 L Est GFR (Non-Af Amer) 38 L Glucose 103 Calcium 8.3 L 10/22/17 23:05 Stool - Stool - Final 08/19/17 23:05 Stool - Stool Stool Culture - Final NO SALMONELLA, SHIGELLA, CAMPYLOBACTER, OR E.COLI 0157 RECOVERED. NEGATIVE FOR SHIGA TOXINS 1&2. Impressions: Chest X-Ray 08/19/17 20:05 IMPRESSION: NO ACUTE RADIOGRAPHIC FINDING IN THE CHEST. Renal Ultrasound 08/19/17 21:58 IMPRESSION: No hydronephrosis. Qualifiers PATEINT BEING DISCHARGED WITH ANY OF THE FOLLOWING DIAGNOSIS?: No Plan Discharge Plan: Patient is discharged home. Will follow up with primary care in 1-2 weeks. Time Spent: Greater than 30 Minutes
== END 2017-08-23 09:30 | disposition home or self-care (01) | DRG 872 ==
LOC: ER 18:56 → EH 22:06 → UNDOADMIN 22:06 → EH 23:01 → 5 08-20 00:46
PROVIDERS: ADMIT Family Medicine; ATTEND Family Medicine
DX: A41.51 Sepsis due to Escherichia coli [E. coli] (principal); N30.00 Acute cystitis without hematuria; N17.9 Acute kidney failure, unspecified; A09 Infectious gastroenteritis and colitis, unspecified; E87.1 Hypo-osmolality and hyponatremia; F17.200 Nicotine dependence, unspecified, uncomplicated; E86.0 Dehydration; E66.9 Obesity, unspecified; Z68.34 Body mass index [BMI] 34.0-34.9, adult; B96.20 Unspecified Escherichia coli [E. coli] as the cause of diseases classified elsewhere; Z98.51 Tubal ligation status; Z83.3 Family history of diabetes mellitus
CPT/HCPCS: 36415; 71010; 76770; 80048; 80053; 81001; 81025; 82272; 83735; 84702; 85025; 87040; 87045; 87077; 87086; 87088; 87186; 87205; 87491; 87493; 87591; 89055; 96365; 96375; 99285; J0696; J0743; J1644; J1885; J2405; J3490; J7030; S0164